=== PATIENT | male | born 2000 | race Caucasian/White ===

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

== ENCOUNTER 2019-04-22 23:53 | Emergency (ER) | payer MEDICAID, SELFPAY ==
[2019-04-22 23:54] VITALS: BP 162/98; PULSE 93; RESP 16; TEMP 36.3; O2SAT 99; BMI 25.7
--- NOTE | 2019-04-23 00:10 | RAD_ITS ---
HISTORY: NKI C/O PAIN IN FINGERS FOR 2-3 MONTHS ADDITIONAL HISTORY: None provided. COMPARISON: None TECHNIQUE: Left hand 3 views Number of images including paperwork: 3 FINDINGS: BONES: Ossific density adjacent to the base of the middle phalanx of the third finger volar to the PIP joint. JOINTS: No subluxation. SOFT TISSUES: No distinct foreign body. RAD/Hand Min 3 Views IMPRESSION: Left third finger middle phalanx avulsion fracture of uncertain chronicity. at 0037 Reported and signed by: Alpa Tristan MD Electronically Signed: Alpa Tristan MD at 0:37 EDT Tel , Service support ,
[2019-04-23] MEDS: Ibuprofen 600 MG Tablet PO (00:17)
--- NOTE | 2019-04-23 00:17 | ED.VIS.GEN ---
History of Present Illness Chief Complaint: Upper Extremity Injury Informant: Patient Onset: - - A while Narrative: [id number] presents for evaluation of cracking sensations in his fingers of left hand for a while. States that time. Pain into his wrists, currently pain at the fourth MCP. No paresthesias. Denies any injuries. No medications taken. Denies any past medical history. Denies surgical history. Allergies to shellfish. No history of gastric ulcers or kidney injury. Prior similar symptoms: Yes Past Medical History - Allergies and Home Meds Allergies/Adverse Reactions: Allergies shellfish derived Allergy (Verified 04/22/19 23:55) Swelling Primary Care Physician: Care Physician,No Primary [Primary Care Provider] - Smoking Status: Current every day smoker Review of Systems All systems negative except as indicated General: Denies: Chills, Fever, Sweats Eyes: Denies: Visual changes - bilaterally, Diplopia ENT: Denies: Rhinorrhea, Sore throat Cardiovascular: Denies: Chest pain, Palpitations Respiratory: Denies: Dyspnea, Cough, Dyspnea on exertion Gastrointestinal: Denies: Abdominal pain, Nausea, Vomiting, Diarrhea, Melena, Hematochezia Genitourinary: Denies: Dysuria, Hematuria, Frequency Musculoskeletal: Reports: Arthralgias. Denies: Back pain, Extremity Pain Skin: Denies: Rash, Wounds Neurological: Denies: Headache, Weakness, Numbness Physical Exam Vital Signs/Narrative: Vital Signs Temp Pulse Resp BP Pulse Ox 04/22/19 23:54 97.4 F L 93 16 162/98 H 99 Inital Vital Signs reviewed: Yes General: Well nourished, Well developed, No Acute Distress Head: Normocephalic, Atraumatic Eyes: Perrl, EOMI ENT: Moist mucous membranes, No rhinorrhea Neck: Supple, Nontender Cardiovascular: Regular rate, Regular rhythm, No murmurs Respiratory: No distress, CTA bilaterally, Chest nontender Abdomen: Soft, Nontender, Nondistended, Normal bowel sounds Back: Nontender, Normal Inspection Extremities: Nontender, No edema, - - Left upper extremity: No elbow or wrist tenderness. There is no hand deformities, patient with open close his hands with auditory crepitus in the DIP joints, there is no tenderness in this region with varus or valgus. Minimal tenderness of the fourth MCP. Neurovascular intact distally. Skin: Normal color, No rash Neurological: Alert, Oriented x3, Cranial nerves II-XII grossly intact, Normal Strength, Normal Sensation Psychological: Normal affect, Normal Mood Diagnostic/Tx/Re-eval Clinical Impression(s) from Imaging Studies Hand X-Ray 04/23/19 00:10 IMPRESSION: Left third finger middle phalanx avulsion fracture of uncertain chronicity. at 0037 Reported and signed by: Alpa Tristan MD Electronically Signed: Alpa Tristan MD at 0:37 EDT Tel , Service support , - Medical Decision Making Patient treated with Motrin, 3 view x-ray left hand obtained, reviewed by myself and read by radiology notes age-indeterminate avulsion fracture base of the middle phalanx of the middle finger. He is nontender in this region. Discussed with patient monitoring symptoms, Tylenol Motrin as needed. Follow-up given as an outpatient. ED Disposition - Plan for ED Patient: Disposition: Home or Assisted Living Diagnosis: Left hand pain Referrals: Care Physician,No Primary [Primary Care Provider] - Sarah Penn [NON-STAFF] - 1 Week Additional Instructions: Old avulsion fracture left middle finger. Take Tylenol or Motrin as needed. Follow-up as an outpatient.
[2019-04-23 00:19] VITALS: RESP 14
[2019-04-23 00:21] VITALS: RESP 14
== END 2019-04-23 00:56 | disposition home or self-care (01) ==
PROVIDERS: Emergency Provider Emergency Medicine
DX: S62.623A Displaced fracture of middle phalanx of left middle finger, initial encounter for closed fracture (principal); M79.642 Pain in left hand; X58.XXXA Exposure to other specified factors, initial encounter; Y93.9 Activity, unspecified; Y92.9 Unspecified place or not applicable; F17.200 Nicotine dependence, unspecified, uncomplicated
CPT/HCPCS: 73130; 99283

== ENCOUNTER 2020-01-30 00:36 | Emergency (ER) | payer MEDICAID, SELFPAY ==
[2020-01-30 00:39] VITALS: BP 170/101; PULSE 102; RESP 24; TEMP 36.7; O2SAT 99; BMI 36.4
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
[2020-01-30] MEDS: Ibuprofen 600 MG Tablet PO (01:14)
[2020-01-30 02:57] VITALS: RESP 16
== END 2020-01-30 02:58 | disposition home or self-care (01) ==
PROVIDERS: Emergency Provider Emergency Medicine
DX: S62.307A Unspecified fracture of fifth metacarpal bone, left hand, initial encounter for closed fracture (principal); S09.90XA Unspecified injury of head, initial encounter; S60.512A Abrasion of left hand, initial encounter; V40.6XXA Car passenger injured in collision with pedestrian or animal in traffic accident, initial encounter; Y93.9 Activity, unspecified; Y92.9 Unspecified place or not applicable; J45.909 Unspecified asthma, uncomplicated; F17.200 Nicotine dependence, unspecified, uncomplicated
CPT/HCPCS: 29125; 70450; 71046; 73130; 73564; 99283; A4216

== ENCOUNTER 2020-05-16 20:23 | Emergency (ER) | payer MEDICAID, SELFPAY ==
[2020-05-16 20:23] VITALS: BP 170/99; PULSE 96; RESP 18; TEMP 36.3; O2SAT 100; BMI 31.1
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
--- NOTE | 2020-05-16 21:45 | ED.VIS.GEN ---
History of Present Illness Chief Complaint: Lower Extremity Injury Informant: Patient Onset: Weeks Context: Gradual Onset Timing: Intermittent Current Severity: Moderate Maximum Severity: Moderate Narrative: Patient is a 20-year-old male was otherwise healthy the presents to the emergency department with intermittent right knee pain. Patient states been going on for about a month. He states that when he extends his knee, he will have pain. He states sometimes when he sits with the bent, he will get a dull aching pain. When he goes up or down stairs, he has pain. It does not give out. He denies any significant injury. Is otherwise been in his normal state of health. Prior similar symptoms: No Recent Illness/Hospitalization: No Past Medical History - Allergies and Home Meds Allergies/Adverse Reactions: Allergies shellfish derived Allergy (Verified 01/30/20 00:38) Swelling Primary Care Physician: Marquis Rascon DO [STAFF PHYSICIAN] - Prior records reviewed: Yes Past Medical History: None Surgical History: no surgical history Smoking Status: Current every day smoker Review of Systems General: Denies: Chills, Fever, Sweats Eyes: Denies: Visual changes - bilaterally, Diplopia ENT: Denies: Rhinorrhea, Sore throat Cardiovascular: Denies: Chest pain, Palpitations Respiratory: Denies: Dyspnea, Cough, Dyspnea on exertion Gastrointestinal: Denies: Abdominal pain, Nausea, Vomiting, Diarrhea, Melena, Hematochezia Genitourinary: Denies: Dysuria, Hematuria, Frequency Musculoskeletal: Reports: Arthralgias. Denies: Back pain, Extremity Pain Skin: Denies: Rash, Wounds Neurological: Denies: Headache, Weakness, Numbness Physical Exam Vital Signs/Narrative: Vital Signs Temp Pulse Resp BP Pulse Ox 05/16/20 20:23 97.3 F L 96 18 170/99 H 100 Inital Vital Signs reviewed: Yes General: Well nourished, Well developed, No Acute Distress Head: Normocephalic, Atraumatic Eyes: Perrl, EOMI ENT: Moist mucous membranes, No rhinorrhea Neck: Supple, Nontender Cardiovascular: Regular rate, Regular rhythm, No murmurs Respiratory: No distress, CTA bilaterally, Chest nontender Abdomen: Soft, Nontender, Nondistended, Normal bowel sounds Back: Nontender, Normal Inspection Extremities: No edema, Tenderness Skin: Normal color, No rash Neurological: Alert, Oriented x3, Cranial nerves II-XII grossly intact, Normal Strength, Normal Sensation Psychological: Normal affect, Normal Mood Diagnostic/Tx/Re-eval Clinical Impression(s) from Imaging Studies Knee X-Ray 05/16/20 21:15 IMPRESSION: Mildly narrowed medial compartment of the joint which may be due to ligamentous or tendinous injury MRI would be useful for further evaluation if indicated. Electronically Signed: Jass Bee MD at 21:33 EDT , Service support , - Medical Decision Making Patient has no gross laxity of the knee. He does have some pain with palpation along the patella. He has a negative Jennifer's and Lockman. Plain films were obtained which showed some medial joint space narrowing, but again there is no laxity. The patient will be prescribed anti-inflammatories and given outpatient orthopedic follow-up for reevaluation. He is comfortable with this plan of care. Impression 1. Right knee patellar pain ED Disposition - Plan for ED Patient: Instructions: ED Knee Pain [facility] Prescriptions: Naproxen [Naprosyn] 500 mg PO BID PRN #20 tab Prescription Printed Referrals: Marquis Rascon DO [STAFF PHYSICIAN] -
== END 2020-05-16 22:26 | disposition home or self-care (01) ==
PROVIDERS: Emergency Provider Emergency Medicine
DX: M25.561 Pain in right knee (principal); F17.200 Nicotine dependence, unspecified, uncomplicated
CPT/HCPCS: 73562; 99282

== ENCOUNTER 2020-11-13 13:52 | Emergency (ER) | payer MEDICAID, SELFPAY ==
[2020-11-13 13:53] VITALS: BP 149/94; PULSE 129; RESP 18; TEMP 36.4; O2SAT 97; BMI 38.3
--- NOTE | 2020-11-13 14:07 | EKG12_ITS ---
Test Reason : CP Blood Pressure : / mmHG Vent. Rate : 109 BPM Atrial Rate : 109 BPM P-R Int : 136 ms QRS Dur : 088 ms QT Int : 324 ms P-R-T Axes : 035 050 030 degrees QTc Int : 436 ms Sinus tachycardia Cannot rule out Anterior infarct (cited on or before 13-NOV-2020) Abnormal ECG Confirmed by MIKAL VELA, GELY ([id number]), graphic editor MAGALY ARAUZ ([id number]) on 11/16/2020 12:27:04 PM Referred By: JOHN Confirmed By:MINDY REN MD
--- NOTE | 2020-11-13 14:08 | ED.DCSUM_ITS ---
History of Present Illness Chief Complaint: Chest Pain Informant: Patient Narrative: 20-year-old male states that he started a new job 7 days ago. He states that every time he goes to going to work he started having sharp chest pains and his heart is racing. While at work he states that he gets lightheaded and his heart stops. He does not collapse to the ground or go unconscious but somehow I am able to keep going. 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 He states that he does not know the signs of cardiac arrest but believes that is what he is suffering. He states this is never happened before. In 2018 he had a evaluation for sharp chest pains associated with work was felt to be anxiety. He does not recall this visit. 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 He states he has been trying to find somebody to do a physical for him but has not had any success. I did advise him that he could call [facility] and they can assign him a new provider. Patient denies any syncope, he denies any DVT PE risk factors. No history of aortic dissection. Past Medical History - Allergies and Home Meds Allergies/Adverse Reactions: Allergies shellfish derived Allergy (Verified 11/13/20 13:56) Swelling Primary Care Physician: Care Physician,No Primary [Primary Care Provider] - Past Medical History: None Surgical History: no surgical history Smoking Status: Current every day smoker Drugs: None Review of Systems General: Reports: Malaise. Denies: Chills, Fever, Sweats Eyes: Denies: Visual changes - bilaterally, Diplopia ENT: Denies: Rhinorrhea, Sore throat Cardiovascular: Reports: Chest pain, Palpitations, Heart racing Respiratory: Denies: Dyspnea, Cough, Dyspnea on exertion Gastrointestinal: Denies: Abdominal pain, Nausea, Vomiting, Diarrhea, Melena, Hematochezia Genitourinary: Denies: Dysuria, Hematuria, Frequency Musculoskeletal: Denies: Back pain, Extremity Pain Skin: Denies: Rash, Wounds Neurological: Denies: Headache, Weakness, Numbness Physical Exam Vital Signs/Narrative: Vital Signs Temp Pulse Resp BP Pulse Ox 11/13/20 13:53 97.6 F L 129 H 18 149/94 H 97 Inital Vital Signs reviewed: Yes General: Well nourished, Well developed, No Acute Distress Head: Normocephalic, Atraumatic Eyes: Perrl, EOMI ENT: Moist mucous membranes, No rhinorrhea Neck: Supple, Nontender Cardiovascular: Regular rate, Regular rhythm, No murmurs Respiratory: No distress, CTA bilaterally, Chest nontender Abdomen: Soft, Nontender, Nondistended, Normal bowel sounds Back: Nontender, Normal Inspection Extremities: Nontender, No edema Skin: Normal color, No rash Neurological: Alert, Oriented x3, Cranial nerves II-XII grossly intact, Normal Strength, Normal Sensation Psychological: Normal affect, Normal Mood Diagnostic/Tx/Re-eval Clinical Impression(s) from Imaging Studies Chest X-Ray 11/13/20 14:26 IMPRESSION: Normal x-ray examination of the chest. Electronically Signed: Edilberto Garcia MD at 14:54 EDT , Service support , Laboratory Last Values WBC 5.9 K/mm3 (4.4-11.0) 11/13/20 14:55 RBC 5.34 M/mm3 (4.6-6.2) 11/13/20 14:55 Hgb 14.7 g/dL (13.0-16.5) 11/13/20 14:55 Hct 44.6 % (40-54) 11/13/20 14:55 MCV 83.5 fL (80-94) 11/13/20 14:55 MCH 27.5 pg (27.0-32.0) 11/13/20 14:55 MCHC 33.0 g/dL (32-36) 11/13/20 14:55 RDW Std Deviation 37.3 fl (35.1-43.9) 11/13/20 14:55 RDW Coeff of Anjelica 12.3 % (11.6-14.6) 11/13/20 14:55 Plt Count 348 K/mm3 (150-450) 11/13/20 14:55 MPV 9.8 fl (6.2-12.0) 11/13/20 14:55 Immature Gran % (Auto) 0.200 % (0.0-0.9) 11/13/20 14:55 Neut % (Auto) 61.1 % (47-70) 11/13/20 14:55 Lymph % (Auto) 29.1 % (19-41) 11/13/20 14:55 [place] % (Auto) 5.9 % (0-10) 11/13/20 14:55 Eos % (Auto) 3.2 % (0-5) 11/13/20 14:55 Baso % (Auto) 0.5 % (0-1) 11/13/20 14:55 Absolute Neuts (auto) 3.6 X10^3/uL (2.0-7.7) 11/13/20 14:55 Absolute Lymphs (auto) 1.73 X10^3/uL (0.83-4.51) 11/13/20 14:55 Nucleated RBC % 0 % (0-5) 11/13/20 14:55 D-Dimer Quant (PE/DVT) <= 0.27 FEU/ug/m (0.27-0.49) 11/13/20 14:55 Sodium 139 mmol/L (136-145) 11/13/20 14:55 Potassium 4.1 mmol/L (3.5-5.1) 11/13/20 14:55 Chloride 108 mmol/L (98-107) H 11/13/20 14:55 Carbon Dioxide 27.0 mmol/L (21.0-32.0) 11/13/20 14:55 Anion Gap 4 (5-15) L 11/13/20 14:55 BUN 18 mg/dL (7-18) 11/13/20 14:55 Creatinine 0.94 mg/dL (0.70-1.30) 11/13/20 14:55 Estim Creat Clear Calc 132.40 ml/min 11/13/20 14:55 Est GFR (MDRD) Af Amer 130 mL/min (>60) 11/13/20 14:55 Est GFR (MDRD) Non-Af 107 mL/min (>60) 11/13/20 14:55 BUN/Creatinine Ratio 19.1 RATIO (10-20) 11/13/20 14:55 Glucose 97 mg/dL (74-106) 11/13/20 14:55 Calcium 8.8 mg/dL (8.5-10.1) 11/13/20 14:55 Total Bilirubin 0.40 mg/dL (0.20-1.00) 11/13/20 14:55 AST 14 U/L (15-37) L 11/13/20 14:55 ALT 39 U/L (16-61) 11/13/20 14:55 Alkaline Phosphatase 85 U/L (45-117) 11/13/20 14:55 Troponin I < 0.015 ng/mL (<0.045) 11/13/20 14:55 Total Protein 7.9 g/dL (6.4-8.2) 11/13/20 14:55 Albumin 4.0 g/dL (3.2-5.0) 11/13/20 14:55 Globulin 3.9 g/dL (2.2-4.2) 11/13/20 14:55 Albumin/Globulin Ratio 1.0 RATIO (0.9-2.4) 11/13/20 14:55 - EKG Initial EKG Interpretation: Sinus Tachycardia - EKG demonstrates a sinus tachycardia at a rate of 109. There are no concerning features of ACS or ectopy. - Medical Decision Making Patient had no events on the monitor. His work-up is negative. I do not believe the patient is having cardiac arrest. I think it is best that he establish primary care. If he continues to have symptoms he should evaluated further with Holter monitor and/or cardiology evaluation. Patient to return if worsening or concerns. ED Disposition - Plan for ED Patient: Disposition: Home or Assisted Living Diagnosis: Palpitations, Chest pain Instructions: ED Chest Pain, Uncertain Cause Referrals: Callie Escobar MD [STAFF PHYSICIAN] - As soon as possible
--- NOTE | 2020-11-13 14:26 | RAD_ITS ---
STUDY: X-RAY CHEST REASON FOR EXAM: Male, 20 years old. Mid-sternal chest pain x 1 week. Heart rate slows with the chest pain. Pain decreases at night. TECHNIQUE: Single AP portable view of the chest. COMPARISON: Comparison is made with prior study dated 01/30/2020. FINDINGS: The lungs are clear and expanded. There is no demonstrated pleural abnormality. Normal size heart. Normal mediastinum and rajiv. Normal visualized pulmonary arteries. Normal visualized aortic arch and descending thoracic aorta. Normal visualized thoracic spine. Normal visualized ribs, clavicles, and shoulders. There is no demonstrated abnormality of the visualized soft tissue structures of the upper abdomen. RAD/Chest 1 View (Portable) IMPRESSION: Normal x-ray examination of the chest. Electronically Signed: Edilberto Garcia MD at 14:54 EDT , Service support ,
[2020-11-13 14:53] VITALS: BP 155/92; PULSE 105; RESP 20; O2SAT 99
[2020-11-13 15:06] LABS: Absolute Lymphocyte Count 1.73 X10^3/uL (0.83-4.51); Absolute Neutrophil Count 3.6 X10^3/uL (2.0-7.7); Basophil# 0.03 X10^3/uL; Basophil% 0.5 % (0-1); Eosinophil# 0.19 X10^3/uL; Eosinophils% 3.2 % (0-5); Hematocrit 44.6 % (40-54); Hemoglobin 14.7 g/dL (13.0-16.5); Lymphocyte # 1.73 X10^3/ul (4.0); Lymphocyte % 29.1 % (19-41); Mean Corpuscular Hgb 27.5 pg (27.0-32.0); Mean Corpuscular Volume 83.5 fL (80-94); Mean Platelet Vol. 9.8 fl (6.2-12.0); Monocyte# 0.35 X10^3/uL; Monocyte% 5.9 % (0-10); NRBC Flagged by Analyzer 0 % (0-5); Neutrophil # 3.63 X10^3/uL (2.7-7.7); Neutrophil % 61.1 % (47-70); Platelet Count 348 K/mm3 (150-450); RBC Distribution Width CV 12.3 % (11.6-14.6); RBC Distribution Width SD 37.3 fl (35.1-43.9); Red Blood Count 5.34 M/mm3 (4.6-6.2); White Blood Count 5.9 K/mm3 (4.4-11.0)
[2020-11-13 15:26] LABS: AST(SGOT) 14 U/L (15-37); Alanine Aminotransfer ALT/SGPT 39 U/L (16-61); Alkaline Phosphatase 85 U/L (45-117); Anion Gap 4 (5-15); BUN 18 mg/dL (7-18); BUN/Creat Ratio 19.1 RATIO (10-20); Calcium,Total 8.8 mg/dL (8.5-10.1); Chloride 108 mmol/L (98-107); Creatinine, Serum 0.94 mg/dL (0.70-1.30); EST Glomerular Filtration Rate 107 mL/min (>60); Est Glom Filt Rate - Afr Amer 130 mL/min (>60); Globulin 3.9 g/dL (2.2-4.2); Glucose 97 mg/dL (74-106); Potassium 4.1 mmol/L (3.5-5.1); Protein, Total 7.9 g/dL (6.4-8.2); Sodium Level 139 mmol/L (136-145)
[2020-11-13 15:43] LABS: D-Dimer Quantitative (DVT/PE) <= 0.27 FEU/ug/m (0.27-0.49)
[2020-11-13 15:50] VITALS: BP 132/76; PULSE 85; RESP 16; O2SAT 97
[2020-11-13 16:24] VITALS: PULSE 95
== END 2020-11-13 16:25 | disposition home or self-care (01) ==
PROVIDERS: Emergency Provider Emergency Medicine
DX: R00.2 Palpitations (principal); F17.200 Nicotine dependence, unspecified, uncomplicated
CPT/HCPCS: 71045; 80053; 84484; 85025; 85379; 93005; 99285; A4216